=== PATIENT | female | born 1990 | race Caucasian/White ===

== ENCOUNTER 2022-10-27 22:51 | Emergency (ER) | payer MEDICAID ==
[~2022-10-27] VITALS: Ht 154.9 cm; Wt 62.1 kg
[2022-10-27 23:17] VITALS: BP 99/49
--- NOTE | 2022-10-27 23:40 | NUR ---
Blood for labwork drawn by collection technician. Patient tolerated well.
[2022-10-27 23:58] LABS: APPEARANCE,URINE SL CLOUDY (CLEAR); BILIRUBIN,URINE NEGATIVE (NEGATIVE); BLOOD, URINE NEGATIVE (NEGATIVE); COLOR,URINE YELLOW (YELLOW); LEUKOCYTE ESTERASE ,URINE NEGATIVE (NEGATIVE); NITRITE, URINE NEGATIVE (NEGATIVE); UGLUCOSE NEGATIVE (NEGATIVE)
--- NOTE | 2022-10-28 00:50 | NUR ---
PT TO 6
--- NOTE | 2022-10-28 01:19 | NUR ---
Patient being evaluated by physician at bedside.
[2022-10-28] MEDS: cefTRIAXone 500 MG in LIDOCAINE MPF 1% 1 ML IM ONE (01:25)
[2022-10-28] MEDS ORDERED: cefTRIAXone 500 MG VIAL ONE (01:34)
[2022-10-28] MEDS ORDERED: LIDOCAINE MPF 1% 5 ML ONE (01:35)
[2022-10-28] MEDS ORDERED: DOXY-487 PO (01:53)
[2022-10-28 02:15] VITALS: BP 99/49
--- NOTE | 2022-10-28 02:15 | NUR ---
Patient discharged with v/s stable. Written and verbal after care instructions given and explained. Patient alert, oriented and verbalized understanding of instructions. Ambulatory with steady gait. All questions addressed prior to discharge. ID band removed. Patient advised to follow up with PMD. Rx of DOXVCYCLINE given. Patient educated on indication of medication including possible reaction and side effects. Opportunity to ask questions provided and answered.
== END 2022-10-28 02:15 | disposition home or self-care (01) ==
LOC: MED 22:51
DX: R07.89 Other chest pain (principal); Z98.890 Other specified postprocedural states
CPT/HCPCS: 81003; 86592; 86703; 87491; 96372; 99283; J0696; J2001